=== PATIENT | female | born 1945 | race Caucasian/White ===

== ENCOUNTER → 2016-04-03 | Day surgery (SDC) | payer MEDICARE, BC ==
[~2016-04-03] VITALS: Ht 162.6 cm; Wt 67.1 kg
[~2016-04-03] MED LIST: ACETAMINOPH W/CODEINE #3 TAB UD As Ordered ONE; ACETAMINOPH W/CODEINE #3 TAB UD PO PRN; EPINEPHrine 1MG/ML INJ 30ML MD-VIAL As Ordered ONE; EPINEPHrine 1MG/ML INJ 30ML MD-VIAL XX ONE; GLYCOPYRROLATE INJ 0.2 MG/ML 2 ML VIAL As Ordered ONE; HYDROmorphone HCL 2 MG/ML 1ML VIAL (J1170) As Ordered ONE; LABETALOL HCL 100 MG/20 ML VIAL As Ordered ONE; LEXA1TAB2 PO; LIDOCAINE 2% INJ 100 MG/5 ML SDV (FOR ANES.) As Ordered ONE; LIDOCAINE W/EPINEPHRINE 1% 20ML VIAL As Ordered ONE; LIDOCAINE W/EPINEPHRINE 1% 20ML VIAL XX ONE; LR 1,000 ML IV SCH; METF500T PO; METHYLENE BLUE 1% 10 ML VIAL (Q9968) As Ordered ONE; METOCLOPRAMIDE INJ 10MG/2ML VIAL (J2765) As Ordered ONE; MIDAZOLAM INJ 2 MG/2 ML VIAL (J2250) As Ordered ONE; MORPHINE 10 MG/ML 1ML VIAL IV PRN; NEOSTIGMINE 1MG/ML 5 ML SYRINGE (J2710) As Ordered ONE; ONDANSETRON 4MG/2ML VIAL (J2405) As Ordered ONE; ONDANSETRON 4MG/2ML VIAL (J2405) IV PRN; PERCOCET 5MG/325MG TAB PO PRN; PROPOFOL 200 MG/20 ML VIAL As Ordered ONE; ROCURONIUM BROMIDE 50 MG/5 ML VIAL As Ordered ONE; TOLT1CAP PO; dexameTHASONE 4 MG/ML 1ML VIAL (J1100) As Ordered ONE; fentaNYL 100 MCG/2 ML INJECTION (J3010) As Ordered ONE; fentaNYL 100 MCG/2 ML INJECTION (J3010) IV PRN; hydrALAZINE INJ 20 MG/ML VIAL As Ordered ONE
[2016-04-03] MEDS: hydrALAZINE INJ 20 MG/ML VIAL IV SCH ×2 (14:25→14:44)
[2016-04-03 14:44] VITALS: BP 168/73
--- NOTE | 2016-04-03 14:52 | RO ---
DATE OF PROCEDURE: 04/03/2016 PREPROCEDURE DIAGNOSIS: Chronic rhinosinusitis. POSTPROCEDURE DIAGNOSIS: Chronic rhinosinusitis. OPERATIVE PROCEDURE: Bilateral polypectomies, bilateral antrostomies, bilateral ethmoidectomies, nasal frontal sinusotomy. FINDINGS: There was polypoid tissue in both sides of the nose, much more prominent on the right side, obviously. SURGEON: Pedrito Dailey MD SUPERVISOR DYER: ANESTHESIA: General. DESCRIPTION OF PROCEDURE: Under general anesthesia with the patient intubated, the patient was draped in the usual manner. I used pledges of adrenaline 1:100,000 and infiltrated with lidocaine with epinephrine. I started first on the right side. I removed the uncinate process. Before I got to that area actually on the right side there was a large polyp, which I removed with a micro biter. I then opened into the osteomeatal complex area. I identified the natural sinus ostium and opened up the maxillary sinus on the right side and enlarged that opening. I then went into the anterior ethmoid air cells and dissected posteriorly and then anterior and then superior. I opened the nasal frontal area on that side so that I could see up into the frontal sinus. Again, bleeding was controlled with pledgets of adrenaline 1:100,000. On the left side, I removed the lateral portion of the middle turbinate and the uncinate process. I removed some polypoid tissue from that side. I then opened up into the maxillary sinus, identified the natural sinus ostium and enlarged that opening in a superior, posterior, inferior, anterior. I then opened up from posterior to anterior ethmoid air cells. I opened the nasal frontal area on that side. The patient tolerated the procedure well. Less than 100 mL estimated blood loss. I put Propel implants into the osteomeatal complex area. The patient tolerated the procedure well and was extubated and transferred to the recovery room in excellent condition.
[2016-04-03 16:45] VITALS: BP 159/72
== END | disposition home or self-care (01) ==
LOC: M SDC 09:09
PROVIDERS: ATTEND Otolaryngology
DX: J32.1 Chronic frontal sinusitis (principal); J31.0 Chronic rhinitis; J34.89 Other specified disorders of nose and nasal sinuses; E11.9 Type 2 diabetes mellitus without complications; I10 Essential (primary) hypertension; Z79.82 Long term (current) use of aspirin; F32.9 Major depressive disorder, single episode, unspecified; Z79.899 Other long term (current) drug therapy; Z87.891 Personal history of nicotine dependence
CPT/HCPCS: 31237; 31255; 31267; 31276; 88305; C2625; J1100; J1170; J2250; J2405; J2710; J2765; J3010; Q9968

== ENCOUNTER → 2019-12-14 | Outpatient (REF) | payer MEDICARE, BC ==
[~2019-12-14] MED LIST changes: -ACETAMINOPH W/CODEINE #3 TAB UD As Ordered ONE; -ACETAMINOPH W/CODEINE #3 TAB UD PO PRN; -EPINEPHrine 1MG/ML INJ 30ML MD-VIAL As Ordered ONE; -EPINEPHrine 1MG/ML INJ 30ML MD-VIAL XX ONE; -GLYCOPYRROLATE INJ 0.2 MG/ML 2 ML VIAL As Ordered ONE; -HYDROmorphone HCL 2 MG/ML 1ML VIAL (J1170) As Ordered ONE; -LABETALOL HCL 100 MG/20 ML VIAL As Ordered ONE; -LIDOCAINE 2% INJ 100 MG/5 ML SDV (FOR ANES.) As Ordered ONE; -LIDOCAINE W/EPINEPHRINE 1% 20ML VIAL As Ordered ONE; -LIDOCAINE W/EPINEPHRINE 1% 20ML VIAL XX ONE; -LR 1,000 ML IV SCH; -METF500T PO; +METF500T13 PO; -METHYLENE BLUE 1% 10 ML VIAL (Q9968) As Ordered ONE; -METOCLOPRAMIDE INJ 10MG/2ML VIAL (J2765) As Ordered ONE; -MIDAZOLAM INJ 2 MG/2 ML VIAL (J2250) As Ordered ONE; -MORPHINE 10 MG/ML 1ML VIAL IV PRN; -NEOSTIGMINE 1MG/ML 5 ML SYRINGE (J2710) As Ordered ONE; -ONDANSETRON 4MG/2ML VIAL (J2405) As Ordered ONE; -ONDANSETRON 4MG/2ML VIAL (J2405) IV PRN; -PERCOCET 5MG/325MG TAB PO PRN; -PROPOFOL 200 MG/20 ML VIAL As Ordered ONE; -ROCURONIUM BROMIDE 50 MG/5 ML VIAL As Ordered ONE; -TOLT1CAP PO; +TOLT4CAP3 PO; -dexameTHASONE 4 MG/ML 1ML VIAL (J1100) As Ordered ONE; -fentaNYL 100 MCG/2 ML INJECTION (J3010) As Ordered ONE; -fentaNYL 100 MCG/2 ML INJECTION (J3010) IV PRN; -hydrALAZINE INJ 20 MG/ML VIAL As Ordered ONE
== END ==
LOC: M LAB REF 18:18
PROVIDERS: ATTEND Physician Assistant
DX: C44.729 Squamous cell carcinoma of skin of left lower limb, including hip (principal)